=== PATIENT | male | born 1960 | race Caucasian/White ===

== ENCOUNTER → 2017-11-22 | Outpatient (CLI) | payer MEDICAID, SELFPAY | PROVIDERS: Family Provider Emergency Medicine; Visit Provider Orthopaedic Surgery | DX: S52.531D Colles' fracture of right radius, subsequent encounter for closed fracture with routine healing (principal) | CPT/HCPCS: 73110 ==

== ENCOUNTER → 2017-12-07 10:23 | Outpatient (REF) | payer MEDICAID, SELFPAY ==
[2017-12-07 13:11] LABS: Amphetamine/Metha Screen,Urine Negative ng/mL (<1000); Barbiturates Screen,Urine Negative ng/mL (<200); Benzodiazepines Screen,Urine Negative ng/mL (200); Cannabinoid Screen,Urine Negative ng/mL (<50); Cocaine Screen,Urine Negative ng/g (<300); Methadone Screen,Urine Negative ng/mL (<300); Opiate Screen,Urine Positive ng/mL (<300); Phencyclidine Screen,Urine Negative ng/mL (<25)
== END ==
LOC: LAB 10:23
PROVIDERS: Visit Provider Emergency Medicine
DX: Z79.899 Other long term (current) drug therapy (principal)
CPT/HCPCS: 80305

== ENCOUNTER → 2018-10-14 19:23 | Outpatient (CLI) | payer MEDICAID, SELFPAY ==
[2018-10-14 19:52] LABS: Basophils # 0.1 K/mm3 (0-0.2); Basophils % 0.5 % (0.1-2.0); Eosinophils # 0.2 K/mm3 (0.0-0.4); Eosinophils % 1.6 % (0.1-12.0); Hematocrit 47.4 % (42.0-52.0); Hemoglobin 15.7 g/dL (14.1-18.0); Lymphocytes # 2.7 K/mm3 (0.7-4.5); Lymphocytes % 26.8 % (10-50); Mean Corpuscular HGB Conc 33.2 g/dL (31.8-35.4); Mean Corpuscular Hemoglobin 30.5 pg (27.0-31.2); Mean Corpuscular Volume 91.8 fl (80-94); Mean Platelet Volume 6.9 fl (7.4-10.4); Monocytes # 0.6 K/mm3 (0.1-1.0); Monocytes % 6.3 % (1.7-9.3); Neutrophils # 6.6 K/mm3 (1.8-7.8); Neutrophils % 64.7 % (37.0-80.0); Platelet Count 512 K/mm3 (142-424); Red Blood Count 5.16 M/mm3 (4.60-6.20); Red Cell Distribution Width 13.9 % (11.5-17.5); White Blood Count 10.2 K/mm3 (4.8-10.8)
[2018-10-14 20:21] LABS: Alanine Aminotransferase 24 U/L (12-78); Albumin Level 4.3 gm/dL (3.4-5.0); Alkaline Phosphatase 85 U/L (46-116); Anion Gap 16.3 mEq/L (5-15); Aspartate Amino Transferase 38 U/L (15-37); Bilirubin,Total 0.6 mg/dL (0.2-1.0); Blood Urea Nitrogen 12 mg/dL (7-18); Calcium 9.1 mg/dL (8.5-10.1); Carbon Dioxide 25 mmol/L (21.0-32.0); Chloride 98 mmol/L (98-107); Chol/HDL Ratio 4.8 (1-3.5); Cholesterol 186 mg/dL (140-200); Creatinine,Serum 0.78 mg/dL (0.70-1.30); Estimated Glomerular Filt Rate 103 ml/min (>60); GFR (African American) 124 ML/MIN (>60); Globulin 4.4 gm/dl (1.3-3.2); Glucose 99 mg/dL (74-106); HDL Cholesterol 39 mg/dL (27-67); LDL Cholesterol 85 mg/dL (0-130); Potassium 4.3 mmoL/L (3.5-5.1); Sodium 135 mmol/L (136-145); T4 (Thyroxine) 7.9 ug/dl (4.7-13.3); Thyroid Stimulating Hormone 4.26 uIU/ml (0.358-3.740); Total Protein,Serum 8.7 gm/dL (6.4-8.2); Triglycerides 312 mg/dL (30-200); VLDL Cholesterol 62 mg/dL (0-40)
[2018-10-14 21:00] LABS: Amphetamine/Metha Screen,Urine Negative ng/mL (<1000); Barbiturates Screen,Urine Negative ng/mL (<200); Benzodiazepines Screen,Urine Negative ng/mL (<200); Cannabinoid Screen,Urine Negative ng/mL (<50); Cocaine Screen,Urine Negative ng/mL (<300); Methadone Screen,Urine Negative ng/mL (<300); Opiate Screen,Urine Negative ng/mL (<300); Phencyclidine Screen,Urine Negative ng/mL (<25)
[2018-10-16 11:09] LABS: PSA, Free 0.23 ng/mL; Prostate Specific Ag 0.8 ng/mL (0.0-4.0)
== END ==
PROVIDERS: Visit Provider Emergency Medicine
DX: M54.5 Low back pain (principal); I10 Essential (primary) hypertension; Z13.0 Encounter for screening for diseases of the blood and blood-forming organs and certain disorders involving the immune mechanism; Z13.29 Encounter for screening for other suspected endocrine disorder; Z12.5 Encounter for screening for malignant neoplasm of prostate
CPT/HCPCS: 80053; 80061; 80305; 84153; 84154; 84436; 84443; 85025

== ENCOUNTER → 2018-11-04 20:22 | Outpatient (CLI) | payer MEDICAID, SELFPAY ==
[2018-11-04 22:11] LABS: Amphetamine/Metha Screen,Urine Negative ng/mL (<1000); Barbiturates Screen,Urine Negative ng/mL (<200); Benzodiazepines Screen,Urine Negative ng/mL (<200); Cannabinoid Screen,Urine Negative ng/mL (<50); Cocaine Screen,Urine Negative ng/mL (<300); Methadone Screen,Urine Negative ng/mL (<300); Opiate Screen,Urine Negative ng/mL (<300); Phencyclidine Screen,Urine Negative ng/mL (<25)
[2018-11-12 09:21] LABS: Oxycodone (GC/MS) 338 ng/mL (Cutoff=100)
[2018-11-12 11:13] LABS: Opiates Negative (Cutoff=100); Oxymorphone (GC/MS) 673 ng/mL (Cutoff=100)
== END ==
PROVIDERS: Visit Provider Emergency Medicine
DX: Z79.899 Other long term (current) drug therapy (principal)
CPT/HCPCS: 80305; 80361; 80365; G0480

== ENCOUNTER → 2018-11-29 19:10 | Outpatient (CLI) | payer MEDICAID, SELFPAY ==
[2018-11-29 21:31] LABS: Amphetamine/Metha Screen,Urine Negative ng/mL (<1000); Barbiturates Screen,Urine Negative ng/mL (<200); Benzodiazepines Screen,Urine Negative ng/mL (<200); Cannabinoid Screen,Urine Negative ng/mL (<50); Cocaine Screen,Urine Negative ng/mL (<300); Methadone Screen,Urine Negative ng/mL (<300); Opiate Screen,Urine Negative ng/mL (<300); Phencyclidine Screen,Urine Negative ng/mL (<25)
[2018-12-06 22:11] LABS: Oxycodone (GC/MS) 1776 ng/mL (Cutoff=100)
[2018-12-07 06:24] LABS: Opiates Negative (Cutoff=100); Oxymorphone (GC/MS) 541 ng/mL (Cutoff=100)
== END ==
PROVIDERS: Visit Provider Emergency Medicine
DX: Z79.899 Other long term (current) drug therapy (principal)
CPT/HCPCS: 80305; 80361; 80365; G0480

== ENCOUNTER → 2018-12-05 09:45 | Outpatient (CLI) | payer MEDICAID, SELFPAY ==
[2018-12-05 10:06] VITALS: PULSE 103
== END ==
PROVIDERS: PCP Emergency Medicine; Visit Provider Emergency Medicine
DX: R06.02 Shortness of breath (principal)
CPT/HCPCS: 94060; 94640

== ENCOUNTER → 2018-12-16 08:50 | Outpatient (POV) | payer MEDICAID, SELFPAY ==
[2018-12-16 09:08] VITALS: BP 136/79; PULSE 94; RESP 18; O2SAT 98
--- NOTE | 2018-12-16 09:40 | HMH.PMCON ---
Assessment and Plan (1) Postlaminectomy syndrome Current visit: Yes Status: Chronic Category: Medical Code(s): M96.1 - Postlaminectomy syndrome, not elsewhere classified - Assessment and plan all Dx Assessment and Plan for all problems:: I do think the patient would be a good candidate for a lumbar epidural steroid injection. Patient states I has never heard anything good about these injections . Patient has not done any conservative therapy with physical therapy or any kind of exercises and stretching. Patient states he did not even continue this after his last surgery in 2017. Patient is not a narcotic candidate due to his multiple DUIs, inappropriate drug screens from previous pain clinics and failure of completion of conservative care. Patient states he will follow-up with his primary care physician I told him he was welcome to return to her clinic if he is interested in injective therapy. Dr. Addison has reviewed this note and agrees with this plan of care. This note was dictated using voice recognition software and may contain errors or omissions HPI - Data of Consult Consult date: 12/16/18 Requesting Physician: Siobhan Saldana APRN Primary Care Provider: Ludin Price MD - Consult Narrative Reason for consult: Back pain History of present illness: Mr. Valencia is a 58 year old male presents today for consultation in regards to his low back pain. Patient was seen in 2014 at that time he is and I cannot for injection. Patient then had repeat surgery in 2017. Patient was then in a pain clinic where he was receiving Percocet 7.51 p.o. 3 times daily. Patient was then discharged from that clinic due to an inappropriate drug screen. Patient states he then switched physicians and is now getting his pain medication from his primary care. Patient rates his pain today a 7 out of 10. Patient states he has not done any physical therapy nor any massage therapy nor any conservative measures other than taking medications. Patient and I did discuss injections however he is not very interested in that at this time. Patient also has history of several DUIs. Patient states that most of his pain is in his low back down his left leg. He states sitting too long makes it worse while walking and pain medication decrease his pain. Patient states he has numbness and tingling in his left leg all the way into his toes. Patient's last MRI was in 2017. Patient does have several levels that are fused he also bulging disc along with facet arthropathy. CC: Siobhan Saldana APRN [facility] History I have reviewed the patient's past medical history: Yes Medical History: Reports:: Gastroesophageal Reflux Disease(GERD), Hypertension, MRSA Have you ever received a pneumonia vaccine?: Yes Other Surgeries: Yes: Other Amputation: No Fractures: Yes (wrist) - *Social History Smoking Status: Current every day smoker Tobacco Type: cigarettes # Packs/Day (cigarettes): 1 #Yrs smoked (if former smoker): 40 Alcohol Intake: never Substance Use Type: denies use Occupational Status: disabled Housing: house Household Members: other Travel in the last 8 weeks: None - Psychiatric History Expresses thoughts of harming self/others: None Suicide Plan Description: No Plan *Family Hx:: Unable to obtain, Cancer, Heart Attack Review of Systems - Review of Systems ROS General: no recent weight change, no fever, no sleep disturbances Respiratory: no cough, no shortness of air, no recurring pulmonary infections Cardiovascular/Peripheral Vascular: No chest pain, No palpitations, no edema, no shortness of breath. Gastrointestinal: no incontinence, normal bowel movements reported Genitourinary: no incontinence Musculoskeletal: Back pain, leg pain Psychiatric: normal mood/ affect Neurological: [denies weakness in extremities], [denies balance issues] Meds Home Medications Medication Instructions Recorded Confirmed Type cyclobenzaprine
--- NOTE | 2018-12-16 09:43 | P.CONS_ITS ---
Assessment and Plan (1) Postlaminectomy syndrome Current visit: Yes Status: Chronic Category: Medical Code(s): M96.1 - Postlaminectomy syndrome, not elsewhere classified - Assessment and plan all Dx Assessment and Plan for all problems:: I do think the patient would be a good candidate for a lumbar epidural steroid injection. Patient states I has never heard anything good about these injections . Patient has not done any conservative therapy with physical therapy or any kind of exercises and stretching. Patient states he did not even continue this after his last surgery in 2017. Patient is not a narcotic candidate due to his multiple DUIs, inappropriate drug screens from previous pain clinics and failure of completion of conservative care. Patient states he will follow-up with his primary care physician I told him he was welcome to return to her clinic if he is interested in injective therapy. Dr. Addison has reviewed this note and agrees with this plan of care. This note was dictated using voice recognition software and may contain errors or omissions HPI - Data of Consult Consult date: 12/16/18 Requesting Physician: Siobhan Saldana APRN Primary Care Provider: Ludin Price MD - Consult Narrative Reason for consult: Back pain History of present illness: Mr. Valencia is a 58 year old male presents today for consultation in regards to his low back pain. Patient was seen in 2014 at that time he is and I cannot for injection. Patient then had repeat surgery in 2017. Patient was then in a pain clinic where he was receiving Percocet 7.51 p.o. 3 times daily. Patient was then discharged from that clinic due to an inappropriate drug screen. Patient states he then switched physicians and is now getting his pain medication from his primary care. Patient rates his pain today a 7 out of 10. Patient states he has not done any physical therapy nor any massage therapy nor any conservative measures other than taking medications. Patient and I did discuss injections however he is not very interested in that at this time. Patient also has history of several DUIs. Patient states that most of his pain is in his low back down his left leg. He states sitting too long makes it worse while walking and pain medication decrease his pain. Patient states he has numbness and tingling in his left leg all the way into his toes. Patient's last MRI was in 2017. Patient does have several levels that are fused he also bulging disc along with facet arthropathy. CC: Siobhan Saldana APRN [facility] History I have reviewed the patient's past medical history: Yes Medical History: Reports:: Gastroesophageal Reflux Disease(GERD), Hypertension, MRSA Have you ever received a pneumonia vaccine?: Yes Other Surgeries: Yes: Other Amputation: No Fractures: Yes (wrist) - *Social History Smoking Status: Current every day smoker Tobacco Type: cigarettes # Packs/Day (cigarettes): 1 #Yrs smoked (if former smoker): 40 Alcohol Intake: never Substance Use Type: denies use Occupational Status: disabled Housing: house Household Members: other Travel in the last 8 weeks: None - Psychiatric History Expresses thoughts of harming self/others: None Suicide Plan Description: No Plan *Family Hx:: Unable to obtain, Cancer, Heart Attack Review of Systems - Review of Systems ROS General: no recent weight change, no fever, no sleep disturbances Respiratory: no cough, no shortness of air, no recurring pulmonary infections Cardiovascular/Peripheral Vascular: No chest pain, No palpitations, no edema, no shortness of breath.
== END ==
PROVIDERS: PCP Emergency Medicine; Visit Provider Clinical Nurse Specialist Family Health
DX: M96.1 Postlaminectomy syndrome, not elsewhere classified (principal)
CPT/HCPCS: 99202

== ENCOUNTER → 2018-12-30 13:49 | Outpatient (CLI) | payer MEDICAID, SELFPAY ==
[2018-12-30 15:38] LABS: Amphetamine/Metha Screen,Urine Negative ng/mL (<1000); Barbiturates Screen,Urine Negative ng/mL (<200); Benzodiazepines Screen,Urine Negative ng/mL (<200); Cannabinoid Screen,Urine Negative ng/mL (<50); Cocaine Screen,Urine Negative ng/mL (<300); Methadone Screen,Urine Negative ng/mL (<300); Opiate Screen,Urine Negative ng/mL (<300); Phencyclidine Screen,Urine Negative ng/mL (<25)
[2019-01-07 13:13] LABS: Oxycodone (GC/MS) 699 ng/mL (Cutoff=100)
[2019-01-07 16:12] LABS: Opiates Negative (Cutoff=100); Oxymorphone (GC/MS) 468 ng/mL (Cutoff=100)
== END ==
PROVIDERS: Visit Provider Emergency Medicine
DX: Z79.899 Other long term (current) drug therapy (principal)
CPT/HCPCS: 80305; 80361; 80365; G0480

== ENCOUNTER → 2019-01-31 14:01 | Outpatient (CLI) | payer MEDICAID, SELFPAY ==
[2019-01-31 14:56] LABS: Amphetamine/Metha Screen,Urine Negative ng/mL (<1000); Barbiturates Screen,Urine Negative ng/mL (<200); Benzodiazepines Screen,Urine Negative ng/mL (<200); Cannabinoid Screen,Urine Negative ng/mL (<50); Cocaine Screen,Urine Negative ng/mL (<300); Methadone Screen,Urine Negative ng/mL (<300); Opiate Screen,Urine Negative ng/mL (<300); Phencyclidine Screen,Urine Negative ng/mL (<25)
== END ==
PROVIDERS: Visit Provider Emergency Medicine
DX: Z79.899 Other long term (current) drug therapy (principal)
CPT/HCPCS: 80305

== ENCOUNTER → 2019-08-28 08:01 | Outpatient (CLI) | payer MEDICAID, SELFPAY ==
--- NOTE | 2019-08-28 08:02 | MR_ITS ---
PROCEDURE: MR CERVICAL SPINE WO CON CLINICAL INDICATION: neck pain COMPARISON: No exams were available for comparison TECHNIQUE: Standard multiplanar multiecho sequences are performed without contrast. 3-D MIP and myelographic images are also rendered and reviewed FINDINGS: Alignment, vertebral body heights and signal from the osseous marrow elements appear normal. C3-4, C4-5, C5-6 and C6-7 levels show diffuse mild bulge without cord deformity. There are multiple levels of facet and uncovertebral joint hypertrophy with foraminal little traverse chew mint and this is moderate bilaterally at C3-4, greater on the left, bilateral at C4-5 more severe on the right, moderate bilaterally at C5-6 and C6-7 in the facet hypertrophy is more severe bilaterally at C6-7. Prevertebral and paraspinal soft tissues are unremarkable. Foramen magnum areas unremarkable. Spinal cord is of normal signal. IMPRESSION: Mild bulges at C3 through C7 levels without central canal stenosis. Multiple levels of foraminal stenosis as discussed above from facet arthrosis and spondylosis. To evaluate for osseous foraminal stenosis a five view routine plain film exam of the cervical spine might be considered. Dictated by: Fabien Junior 08/28/2019 09:45 Electronically signed by Fabien Junior in [place] 08/28/2019 09:45
== END ==
PROVIDERS: PCP Emergency Medicine; Visit Provider Emergency Medicine
DX: M54.2 Cervicalgia (principal); V89.2XXA Person injured in unspecified motor-vehicle accident, traffic, initial encounter
CPT/HCPCS: 72141; 76376

== ENCOUNTER → 2019-09-09 15:02 | Outpatient (CLI) | payer MEDICAID, SELFPAY ==
--- NOTE | 2019-09-09 15:04 | MR_ITS ---
PROCEDURE: MR LUMBAR SPINE WO CON CLINICAL INDICATION: back pain Low back pain, left leg numbness. Prior back surgeries COMPARISON: There are no previous pertinent exams available for comparison. TECHNIQUE: Standard multiplanar multiecho sequences are performed without contrast. 3-D MIP and myelographic images are also rendered and reviewed FINDINGS: Artifact is present from multiple inter pedicular screws at with connecting rods. There has been prior laminectomy from L2 through L4. Prominent bony hypertrophic changes are present from the prior fusion posteriorly. Artifact somewhat obscures these findings. There straightening of the lumbar lordosis. The spinal cord ends at the T12-L1 level. There straightening of the lumbar lordosis with multilevel degenerative disc disease T11-T12: Degenerate disc disease with bulging disc eccentric to the right with right-sided foraminal narrowing. There is mild wedging of T12 which does not appear acute. T12-L1: Degenerate disc disease with bulging disc along with facet and ligamentum hypertrophy with resultant bilateral lateral recess and severe bilateral foraminal narrowing. There is transverse narrowing of the canal at 10 mm. Artifact is present from inter pedicular screws at L1. L1-L2: Moderate facet hypertrophic changes with bulging disc with bilateral foraminal narrowing and bilateral lateral recess narrowing. Artifact from inter pedicular screws. L2-L3: Degenerate disc disease with facet and ligamentum hypertrophy with canal stenosis. Artifact from inter pedicular screws. L3-L4: Degenerate disc disease with bulging disc along with facet and ligamentum hypertrophy with severe canal stenosis and severe bilateral foraminal narrowing greater on the left. The canal measures 6 mm in AP dimension. Artifact from inter pedicular screws. There is prominent bony hypertrophic changes from the fusion. L4-5: Bulging disc with degenerative disc disease along with facet and ligamentum hypertrophy with severe bilateral lateral recess and foraminal narrowing with canal stenosis of 9 mm. Minimal anterolisthesis of L4 of 2 mm. L5-S1: Bulging disc slightly eccentric toward the left with facet and ligamentum hypertrophy with moderate to severe bilateral foraminal and lateral recess narrowing with canal stenosis of 9 mm. IMPRESSION: Abnormal MRI of the lumbar spine with extensive lumbar spondylosis and extensive postsurgical changes with laminectomy and posterior fusion from L1-L4 with extensive bony hypertrophic changes resulting in lateral recess and foraminal narrowing and canal stenosis which is most severe at L3-L4 but also present at L4-5 and L5-S1. Please see above for detailed description at each level. Dictated by: Jourdan Santillan MD 09/11/2019 06:42 Electronically signed by Jourdan Santillan MD in [place] 09/11/2019 06:42
== END ==
PROVIDERS: PCP Emergency Medicine; Referring Provider Emergency Medicine; Visit Provider Emergency Medicine
DX: M54.9 Dorsalgia, unspecified (principal); V89.2XXA Person injured in unspecified motor-vehicle accident, traffic, initial encounter
CPT/HCPCS: 72148; 76376

== ENCOUNTER → 2020-12-17 18:29 | Outpatient (CLI) | payer MEDICAID, SELFPAY ==
[2020-12-17 18:53] LABS: Basophils # 0.1 K/mm3 (0-0.2); Basophils % 0.5 % (0.1-2.0); Eosinophils # 0.3 K/mm3 (0.0-0.4); Eosinophils % 2.9 % (0.1-12.0); Hematocrit 42.7 % (42.0-52.0); Hemoglobin 14.2 g/dL (14.1-18.0); Lymphocytes # 2.5 K/mm3 (0.7-4.5); Lymphocytes % 24.6 % (10-50); Mean Corpuscular HGB Conc 33.4 g/dL (31.8-35.4); Mean Corpuscular Hemoglobin 31.9 pg (27.0-31.2); Mean Corpuscular Volume 95.5 fl (80-94); Mean Platelet Volume 7.6 fl (7.4-10.4); Monocytes # 0.7 K/mm3 (0.1-1.0); Monocytes % 6.8 % (1.7-9.3); Neutrophils # 6.7 K/mm3 (1.8-7.8); Neutrophils % 65.2 % (37.0-80.0); Platelet Count 406 K/mm3 (142-424); Red Blood Count 4.47 M/mm3 (4.60-6.20); Red Cell Distribution Width 14.4 % (11.5-17.5); White Blood Count 10.2 K/mm3 (4.8-10.8)
[2020-12-17 19:04] LABS: Alanine Aminotransferase 36 U/L (12-78); Albumin Level 4.5 g/dl (3.5-5.0); Albumin/Globulin Ratio 1.3 (1.1-1.8); Alkaline Phosphatase 103 U/L (38-126); Anion Gap 14.1 mEq/L (5-15); Aspartate Amino Transferase 99 U/L (17-59); Bilirubin,Total 0.4 mg/dl (0.2-1.3); Blood Urea Nitrogen 14 mg/dl (9-20); Calcium 9.2 mg/dl (8.4-10.2); Carbon Dioxide 21 mmol/L (22.0-30.0); Chloride 97 mmol/L (98-107); Chol/HDL Ratio 2.3 (1-3.5); Cholesterol 187 mg/dl (140-200); Estimated Glomerular Filt Rate 115 ml/min (>60); GFR (African American) 140 ML/MIN (>60); Globulin 3.4 g/dL (1.3-3.2); Glucose 126 mg/dl (74-100); HDL Cholesterol 81 mg/dl (40-60); Potassium 4.1 mmoL/L (3.5-5.1); Sodium 128 mmol/L (136-145); Total Protein,Serum 7.9 g/dl (6.3-8.2); Triglycerides 357 mg/dl (30-150); VLDL Cholesterol 71 mg/dL (0-40)
[2020-12-17 19:15] LABS: Direct LDL Cholesterol 67.97 mg/dL (100-129)
[2020-12-17 19:20] LABS: Free T4 (Free Thyroxine) 1.25 ng/dl (0.78-2.19)
[2020-12-17 19:21] LABS: 25-OH Vitamin D, Total 37.1 ng/mL (30-100)
[2020-12-17 19:35] LABS: Thyroid Stimulating Hormone 4.55 uIU/mL (0.465-4.68)
== END ==
PROVIDERS: Visit Provider Emergency Medicine
DX: R53.83 Other fatigue (principal); E55.9 Vitamin D deficiency, unspecified; Z79.899 Other long term (current) drug therapy
CPT/HCPCS: 80053; 80061; 82306; 84439; 84443; 85025

== ENCOUNTER → 2023-01-01 23:30 | Outpatient (CLI) | payer MEDICAID, SELFPAY ==
[2023-01-01 18:28] LABS: Alanine Aminotransferase 14 U/L (12-78); Albumin Level 4.4 g/dl (3.5-5.0); Albumin/Globulin Ratio 1.4 (1.1-1.8); Alkaline Phosphatase 78 U/L (38-126); Aspartate Amino Transferase 44 U/L (17-59); Bilirubin,Total 0.4 mg/dl (0.2-1.3); Blood Urea Nitrogen 10 mg/dl (9-20); Calcium 8.7 mg/dl (8.4-10.2); Carbon Dioxide 24 mmol/L (22.0-30.0); Chloride 108 mmol/L (98-107); Chol/HDL Ratio 3.5 (1-3.5); Cholesterol 136 mg/dl (140-200); Estimated Glomerular Filt Rate 137 ml/min (>60); GFR (African American) 166 ML/MIN (>60); Globulin 3.2 g/dL (1.3-3.2); Glucose 110 mg/dl (74-100); HDL Cholesterol 39 mg/dl (40-60); Sodium 139 mmol/L (136-145); Total Protein,Serum 7.6 g/dl (6.3-8.2); Triglycerides 79 mg/dl (30-150); VLDL Cholesterol 16 mg/dL (0-40)
[2023-01-01 18:33] LABS: Basophils # 0.1 K/mm3 (0-0.2); Basophils % 0.7 % (0.1-2.0); Eosinophils # 0.3 K/mm3 (0.0-0.4); Eosinophils % 2.9 % (0.1-12.0); Hematocrit 41.3 % (42.0-52.0); Hemoglobin 13.5 g/dL (14.1-18.0); Lymphocytes # 2.5 K/mm3 (0.7-4.5); Lymphocytes % 25.7 % (10-50); Mean Corpuscular HGB Conc 32.7 g/dL (31.8-35.4); Mean Corpuscular Hemoglobin 29.3 pg (27.0-31.2); Mean Corpuscular Volume 89.6 fl (80-94); Mean Platelet Volume 8.1 fl (7.4-10.4); Monocytes # 0.6 K/mm3 (0.1-1.0); Monocytes % 6.4 % (1.7-9.3); Neutrophils # 6.4 K/mm3 (1.8-7.8); Neutrophils % 64.4 % (37.0-80.0); Platelet Count 431 K/mm3 (142-424); Red Blood Count 4.61 M/mm3 (4.60-6.20); White Blood Count 9.9 K/mm3 (4.8-10.8)
[2023-01-01 18:39] LABS: Direct LDL Cholesterol 80.16 mg/dL (100-129)
[2023-01-01 18:45] LABS: 25-OH Vitamin D, Total 34.7 ng/mL (30-100); Free T4 (Free Thyroxine) 1.46 ng/dl (0.78-2.19)
[2023-01-01 19:00] LABS: Thyroid Stimulating Hormone 2.19 uIU/mL (0.465-4.68)
[2023-01-01 19:36] LABS: Prostate Specific Ag Screen 0.4 ng/ml (0.0-4.0)
== END ==
PROVIDERS: PCP Emergency Medicine; Visit Provider Emergency Medicine
DX: E03.9 Hypothyroidism, unspecified (principal); I10 Essential (primary) hypertension; E55.9 Vitamin D deficiency, unspecified; Z12.5 Encounter for screening for malignant neoplasm of prostate
CPT/HCPCS: 80053; 80061; 82306; 84439; 84443; 85025; G0103

== ENCOUNTER → 2023-03-21 11:00 | Outpatient (CLI) | payer MEDICAID, SELFPAY ==
[2023-03-21 15:46] LABS: Amphetamine/Metha Screen,Urine Negative ng/ml (<1000); Barbiturates Screen,Urine Negative ng/ml (<200)
[2023-03-21 15:47] LABS: Benzodiazepines Screen,Urine Positive ng/ml (<200)
[2023-03-21 15:48] LABS: Cannabinoid Screen,Urine Negative ng/ml (<50); Cocaine Screen,Urine Negative ng/ml (<300)
[2023-03-21 15:49] LABS: Methadone Screen,Urine Negative ng/ml (<300)
[2023-03-21 15:50] LABS: Opiate Screen,Urine Negative ng/ml (<300)
[2023-03-21 15:51] LABS: Phencyclidine Screen,Urine Negative ng/ml (<25)
== END ==
PROVIDERS: PCP Physician Assistant; Visit Provider Physician Assistant
DX: Z79.899 Other long term (current) drug therapy (principal)
CPT/HCPCS: 80305

== ENCOUNTER → 2023-03-21 14:43 | Outpatient (CLI) | payer MEDICAID, SELFPAY | PROVIDERS: PCP Physician Assistant; Visit Provider Physician Assistant | DX: M54.2 Cervicalgia (principal); M54.50 Low back pain, unspecified ==